=== PATIENT | female | born 1930 | race African-American/Black ===

== ENCOUNTER 2016-09-22 12:32 | Inpatient (IN) | payer MEDICARE, OTHER ==
--- NOTE | ~2016-09-22 | CN ---
Consultation Report [facility] [address] [place]. [address] NAME: KUSHAL RIVER : 29 STATUS : ADM IN PAT#: [id number] AGE: 86 ADM/REG DATE : 09/22/16 MR#: [id number] REPORT SERV DATE: 09/25/16 DICTATED BY: SONNY CONTRERAS DATE: 09/25/16 REPORT STATUS : Draft TRANSCRIBED BY: MODL DATE: 09/25/16 CONSULTATION DATE OF CONSULTATION: 09/25/2016 PERTINENT HISTORY: The patient is an 86-year-old female admitted to the hospital with Dr. Nilo Grewal with known history of dialysis dependent end-stage renal disease, who was also been evaluated from a cardiology standpoint by Dr. Sid Cui. The patient was taken to the cardiac catheterization lab and noted to have severe three-vessel coronary artery disease. She also had a history of atrial fibrillation and possible history of some mild aortic valvular heart disease. The patient was then referred for evaluation of potential cardiac surgical intervention for the coronary artery disease. PAST MEDICAL HISTORY: Her past medical history is significant for arthritis, hypertension, diabetes mellitus, end-stage renal disease, diverticulitis, and sinusitis. PAST SURGICAL HISTORY: Her past surgical history is significant for partial hysterectomy years ago, a dialysis access fistula in the left upper extremity, colonoscopy, tonsillectomy. She had no open cardiac or thoracic surgery. SOCIAL HISTORY: No ethanol use. No tobacco use. 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 FAMILY HISTORY: End-stage renal disease. REVIEW OF SYSTEMS: Significant for blurred vision of both eyes, slight hearing loss. She had no real history of regular angina. Nonproductive cough but no obvious shortness of breath. PHYSICAL EXAMINATION: VITAL SIGNS: The physical examination showed the patient to be afebrile. Blood pressure 150/90, heart rate was at 70, could be irregular. GENERAL: She is in no acute distress. Alert and oriented x3. NEUROLOGICAL: Intact. NECK: No adenopathy in her neck. CHEST: Her chest had breath sounds bilaterally without obvious wheeze or rales. HEART: She had irregular rhythm, a prominent PMI. ABDOMEN: Her abdomen is soft and nontender without masses. EXTREMITIES: Warm and dry. IV access in the left upper extremity. SKIN: Showed no obvious rash. DATA: Cardiac catheterization demonstrated very diffuse disease proximally involving the LAD artery, circumflex, and right coronary arteries. The right coronary artery is totally occluded. She did have reasonable operative targets in the LAD artery circumflex system as Consultation Report [place] [id number] [facility] [place]. [address] NAME: KUSHAL RIVER : 29 STATUS : ADM IN PAT#: [id number] AGE: 86 ADM/REG DATE : 09/22/16 MR#: [id number] REPORT SERV DATE: 09/25/16 DICTATED BY: SONNY CONTRERAS DATE: 09/25/16 REPORT STATUS : Draft TRANSCRIBED BY: MODWilly DATE: 09/25/16 well as distal right coronary artery. Her echocardiogram demonstrated moderate aortic insufficiency, mild aortic stenosis with valve pressure at 1.4. Ejection fraction of approximately 45% with mild mitral regurgitation. Calculated STS mortality was 35%, morbidity was 68%. Long discussion with the patient regarding surgical intervention. She understood the risks and benefits. She does not want to undergo any kind of surgical intervention as she appears like her risk would be too high. Therefore we recommend continued further medical management. PARESH/FILI Sonny Contreras M.D. / [id number] CC: Leigha Mendiola
--- NOTE | ~2016-09-22 | CN ---
Consultation Report [facility] [address] [place]. [address] NAME: KUSHAL RIVER : 29 STATUS : ADM IN [facility]#: [id number] AGE: 86 ADM/REG DATE : 09/22/16 MR#: [id number] REPORT SERV DATE: 09/24/16 DICTATED BY: CARMENCITA REY III DATE: 09/24/16 REPORT STATUS : Draft TRANSCRIBED BY: FILI DATE: 09/24/16 CONSULTATION DATE OF CONSULTATION: 09/24/2016 HISTORY OF PRESENT ILLNESS: Mrs. Kushal River is an 86-year-old female, admitted to [facility] for evaluation of an acute kjr-DN-igunxre elevation myocardial infarction, new onset atrial fibrillation with a rapid ventricular response, and nonsustained ventricular tachycardia. The patient has a history of intermittent dull substernal chest pain. The patient did well until the day of admission. At that time, the patient noted the onset of generalized weakness and nausea during dialysis. A 12-lead electrocardiogram demonstrated atrial fibrillation with a rapid ventricular response. The patient was subsequently seen in the [facility] Emergency Room. The patient's troponin I level was 0.13, hemoglobin 10.3, hematocrit 30.6, platelet count was 113,000, BUN 30, and creatinine was 6.02. A 12-lead electrocardiogram demonstrated atrial fibrillation with an average ventricular response of 170 beats per minute and left ventricular hypertrophy with repolarization abnormalities. The patient was subsequently treated with intravenous diltiazem. The patient was admitted and referred for cardiovascular evaluation. The patient complained of recent bilateral pedal edema and two-pillow orthopnea. The patient denied palpitations, syncope, dyspnea on exertion, paroxysmal nocturnal dyspnea, trepopnea, platypnea, hip claudication, and lower extremity claudication. The patient has no history of rheumatic fever or cardiac murmur. The patient's documented coronary artery disease risk factors include hypertension and diabetes mellitus. PAST MEDICAL HISTORY: 1. Hypertension. 2. Diabetes mellitus. 3. End-stage renal disease. 4. Arthritis. 5. History of diverticulitis. 6. Chronic sinusitis. OPERATIVE PROCEDURES: 1. Status post left upper extremity fistula. 2. Status post colostomy. 3. Status post tonsillectomy. 4. Status post partial hysterectomy. ALLERGIES: PENICILLIN. HOME MEDICATIONS: 1. B-complex with vitamin C and folic acid 1 p.o. daily. 2. Carvedilol 3.125 mg p.o. b.i.d. (noncompliant). Consultation Report [place] [address] [place]. [address] NAME: KUSHAL RIVER : 29 STATUS : ADM IN PAT#: [id number] AGE: 86 ADM/REG DATE : 09/22/16 MR#: [id number] REPORT SERV DATE: 09/24/16 DICTATED BY: CARMENCITA REY III DATE: 09/24/16 REPORT STATUS : Draft TRANSCRIBED BY: FILI DATE: 09/24/16 3. Gabapentin 100 mg p.o. b.i.d. 4. Alpha methyldopa 250 mg p.o. b.i.d. 5. Nifedipine ER 60 mg p.o. daily. 6. Polyethylene glycol 1 drop OU b.i.d., p.r.n. 7. Sevelamer 800 mg p.o. t.i.d. with meals (noncompliant). FAMILY HISTORY: Positive for hypertension, cancer, kidney disease, pernicious anemia, arthritis, and obsessive-compulsive disorder. Negative for myocardial infarction, stroke, seizures, and liver disease. SOCIAL HISTORY: The patient discontinued alcohol use, approximately fifty years, prior to this admission. The patient denied any history of tobacco use. PHYSICAL EXAMINATION: GENERAL: Physical examination demonstrated a thin, alert, elderly female, in no acute distress. VITAL SIGNS: Demonstrated that she was afebrile to touch, respiratory rate was 17 breaths per minute, and blood pressure was 134/67 mmHg with a heart rate of 70 beats per minute. SKIN: Warm and dry. There was a left upper extremity colostomy, intact. There is a well- healed midline abdominal surgical scar. There was a left arm fistula. NECK: Supple and nontender. There was decreased range of motion. There was no appreciable lymphadenopathy or thyromegaly. There was no jugular venous distention at 90 degrees. There were no carotid bruits. BACK: Examination of the back demonstrated diffuse spinal and bilateral costovertebral angle tenderness. CHEST: Examination of the chest demonstrated right greater than left basilar inspiratory crackles. There were no rhonchi, wheezes, or pleural rubs. There was symmetrical expansion of the chest. CARDIAC: Cardiac examination demonstrated a nonpalpable apical impulse. There was a regular rhythm and rate with a grade II-III/ systolic crescendo-decrescendo murmur heard best at the left sternal border and apex. There was no significant radiation of the systolic murmur. There was no diastolic murmur, rub, gallop, or mid systolic click. There were no thrills or heaves. There was no hepatojugular reflux. ABDOMEN: Examination of the abdomen demonstrated that it was soft and nontender. There was no hepatosplenomegaly or masses. Bowel sounds were intact. There were no abdominal or femoral bruits. BACK: Examination of the extremities demonstrated that they were symmetrical. There was decreased range of motion. There was 1 to 2+ pitting bilateral pedal edema. There was no cyanosis or clubbing. Pulses were 2+ and equal at the femoral arteries. The right radial pulse was 2+ and the left radial pulse was 1+. The right dorsalis pedis pulse was 2+ and the left dorsalis pedis pulse was 1+. The posterior tibial pulses were trace to nonpalpable. LABORATORY DATA: Serum laboratory studies demonstrated troponin I levels of 0.13, 14, and 13.5. The B-type natriuretic peptide level was 1086.7 pg/mL. The TSH level was 4.13. The Consultation Report [address] [address] NAME: KUSHAL RIVER : 29 STATUS : ADM IN [facility]#: [id number] AGE: 86 ADM/REG DATE : 09/22/16 MR#: [id number] REPORT SERV DATE: 09/24/16 DICTATED BY: CARMENCITA REY III DATE: 09/24/16 REPORT STATUS : Draft TRANSCRIBED BY: MODWilly DATE: 09/24/16 sodium was 144, potassium 3.8, chloride 106, BUN 34, and creatinine was 5.76. ASSESSMENT: Ms. Kushal River is an 86-year-old female with two other risk factors for coronary atherosclerotic disease (i.e. hypertension, diabetes mellitus), new onset atrial fibrillation with a rapid ventricular response, and nonsustained ventricular tachycardia. I would recommend the initiation of therapy with aspirin, intravenous heparin, beta-adrenergic antagonist, nitrates, and high-intensity atorvastatin. I would recommend a 2D and Doppler echocardiogram to delineate the source of the patient's systolic murmur. I have recommended cardiac catheterization and consideration of revascularization. Options, potential risks, and benefits of the procedure were discussed with the patient. The patient wished to consider her options. HARINI/FILI Carmencita Rey III, M.D., [facility], [facility] / [id number] CC: Nilo Grewal M.D. Tricia Deal
--- NOTE | ~2016-09-22 | OP ---
Record Of Operation [facility] [address] [place]. [address] NAME: KUSHAL RIVER : 29 STATUS : ADM IN PAT#: [id number] AGE: 86 ADM/REG DATE : 09/22/16 MR#: [id number] REPORT SERV DATE: 09/29/16 DICTATED BY: STEPHEN GANNON DATE: 09/29/16 REPORT STATUS : Draft TRANSCRIBED BY: MODL DATE: 09/29/16 DATE OF PROCEDURE: 09/28/2016 PREOPERATIVE DIAGNOSES: 1. Prolonged bleeding, left upper extremity AV fistula. 2. AV fistula aneurysm. POSTOPERATIVE DIAGNOSES: 1. Prolonged bleeding, left upper extremity AV fistula. 2. AV fistula aneurysm. PROCEDURES: 1. Left upper extremity fistulogram. 2. Percutaneous angioplasty of the AV fistula using a 10 mm balloon. SURGEON: Stephen Gannon M.D. NICKER AND BREAKER: None. ANESTHESIA: MAC plus local. INDICATIONS: The patient is an 86-year-old lady who presented with myocardial infarction and has sudden renal failure. She also has known AV fistula aneurysms. She does have some issues with prolonged bleeding and previously had stenosis of her AV fistula that has been treated. Now, she has consented for a fistulogram with possible intervention as there is likely an underlying stenosis. DESCRIPTION OF PROCEDURE: After informed consent was obtained, the patient was taken to the operating room and placed in the supine position on the operating table. Monitored anesthesia was administered. The patient's left upper extremity was prepped and draped in the usual sterile fashion. Ultrasound-guided access was obtained of the AV fistula in an antegrade fashion. I obtained a fistulogram. This demonstrated several areas of irregularity, in particular there was a question of a more significant stenosis right at the confluence of the cephalic vein with the deep venous system. I placed a 6-Kazakh sheath and angioplastied it close to the fistula including the cephalic arch with a 10 mm balloon. There was a little bit of a waist at the confluence as well as at another point within the fistula. Imaging obtained afterwards showed a great result. Thus, I withdrew my wire, catheter, sheath, and placed a stitch for hemostasis. The patient tolerated the procedure well without any intraprocedural complications noted. GEOPHYSICIST/FILI Stephen Gannon M.D. Record Of Operation [place] [address] [place]. [address] NAME: KUSHAL RIVER : 29 STATUS : ADM IN PAT#: [id number] AGE: 86 ADM/REG DATE : 09/22/16 MR#: [id number] REPORT SERV DATE: 09/29/16 DICTATED BY: STEPHEN GANNON DATE: 09/29/16 REPORT STATUS : Draft TRANSCRIBED BY: MODL DATE: 09/29/16 / [id number] CC: Leigha Mendiola
--- NOTE | ~2016-09-22 | HP ---
History And Physical [place] [id number] [place]. [address] NAME: KUSHAL RIVER : 29 STATUS : ADM IN [facility]#: [id number] AGE: 86 ADM/REG DATE : 09/22/16 MR#: [id number] REPORT SERV DATE: 09/22/16 DICTATED BY: DATE: REPORT STATUS : Draft TRANSCRIBED BY: MODL DATE: 09/22/16 DATE OF ADMISSION: 09/22/2016 CHIEF COMPLAINT: Weakness. HISTORY OF PRESENT ILLNESS: Ms. River is an 86-year-old black female with a history of end stage renal disease, dialyzes at [facility] in [place] on Wednesday, Wednesday, and Wednesday; hypertension; osteoarthritis; perforation of diverticulitis with colostomy; hyperlipidemia; partial hysterectomy, who presents to the hospital with weakness that started yesterday after dialysis. Before going to dialysis, she was in her usual state of health and felt well. She lives at home alone and states during the treatment, she developed a slight sore throat, thought she may be getting a cold and then when she got home, she was so weak that she could not even walk around her house. This morning, awoke and she was still quite weak to the point where her niece had to help her get clothes on. Therefore, they presented to the emergency department. She was found to be in atrial fibrillation with RVR with rate up to the 170s and short of breath. She states she did have a temperature of 100 earlier and took some Tylenol with relief of symptoms, and she is currently without any sore throat. No chest pain or shortness of breath while sitting here at this time. Her chest x-ray showed some left pleural fluid. It is of note that the patient did have some increased lower extremity edema in the last couple of weeks. She states she had never had problems with edema in the past, this was new for her. 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 ALLERGIES: PENICILLIN. SOCIAL HISTORY: She lives by herself, but has nieces who help with her care. No tobacco, alcohol, or illicit drug use. FAMILY MEDICAL HISTORY: Strongly positive for end-stage renal disease. MEDICATIONS: At home, Tylenol, B complex vitamin, Coreg, Neurontin, methyldopa, nifedipine, eye drops, and Renvela. REVIEW OF SYSTEMS: Twelve-point review of systems obtained and negative with the exception of that in the HPI. PHYSICAL EXAMINATION: VITAL SIGNS: Temperature 98.7, blood pressure 120s over 70s, heart rates in the 90s to one- teens. GENERAL: This is a pleasant, cooperative black female. She is awake, alert and oriented x3, in no acute distress. Answers questions appropriately. HEENT: Normocephalic and atraumatic. Conjunctivae clear. Sclerae anicteric. Pupils are equal and round. Oral mucosa is moist. HEART: Rate is irregularly irregular. History And Physical [address] [address] NAME: KUSHAL RIVER : 29 STATUS : ADM IN [facility]#: [id number] AGE: 86 ADM/REG DATE : 09/22/16 MR#: [id number] REPORT SERV DATE: 09/22/16 DICTATED BY: DATE: REPORT STATUS : Draft TRANSCRIBED BY: MODWilly DATE: 09/22/16 LUNGS: Bilateral breath sounds clear to auscultation. Respirations even and unlabored. ABDOMEN: Soft and nontender with colostomy in the left abdomen. No CVA tenderness. BACK: Within normal limits. EXTREMITIES: She has trace to 1+ pitting edema, left greater than right, to lower extremities. NEUROLOGIC: No focal deficits. Mood and affect, very pleasant and appropriate. PERTINENT LABORATORIES AND X-RAYS: She has a chest x-ray with description as above with some pleural fluid to the left. Sodium 141, potassium 4.1, chloride 103, CO2 of 27, BUN of 30, creatinine of 6, magnesium 2.1. Troponin 0.13. WBCs 9, H and H 10 and 30, platelets 113,000. IMPRESSION: 1. Atrial fibrillation with rapid ventricular response. 2. End-stage renal disease, Wednesday, Wednesday, and Wednesday at [place]. 3. Hypertension. 4. Osteoarthritis. 5. Fever. 6. Status post colostomy. PLAN: She is going to be admitted and placed on Cardizem drip. I did discuss anticoagulation with the patient and she states that she is not interested. I did talk to her about increased risk for stroke and she still declines. We will plan on dialysis tomorrow per routine and try and pull some extra fluid. Further orders and recommendations pending clinical course. JJ/MODL DIVINE Bloom / [id number] CC: Tricia Deal
--- NOTE | ~2016-09-22 | OP ---
Record Of Operation [facility] [address] [place]. [address] NAME: KUSHAL BALLARD : 29 STATUS : DIS IN PAT#: [id number] AGE: 86 ADM/REG DATE : 09/22/16 MR#: [id number] REPORT SERV DATE: 10/05/16 DICTATED BY: CARMENCITA REY III DATE: 10/05/16 REPORT STATUS : Draft TRANSCRIBED BY: MODL DATE: 10/05/16 DATE OF PROCEDURE: 09/24/2016 PROCEDURAL DECORATING KILN OPERATOR: Dr. Carmencita Rey. INDICATION: Mrs. Kushal Ballard is an 86-year-old female with two other risk factors for coronary atherosclerotic disease (i.e. hypertension, diabetes mellitus), new onset atrial fibrillation with a rapid ventricular response, acute hbq-SO-pvulfjt elevation myocardial infarction-acute coronary syndrome and nonsustained ventricular tachycardia. A 2D and Doppler echocardiogram performed on 09/23/2016 demonstrated mild concentric left ventricular hypertrophy, mild global left ventricular hypokinesis, mild reduction in global left ventricular systolic function, severe left atrial enlargement, moderate right atrial enlargement, mild aortic stenosis with moderate regurgitation, posterior mitral annular calcification, eusw-ta-gotzzlrp mitral regurgitation, moderate tricuspid regurgitation, pulmonary regurgitation, left pleural effusion and findings suggestive of pulmonary hypertension. The patient was referred for right and left heart catheterization to define coronary anatomy, left ventricular function and right heart pressures. Options, potential risks, and benefits of the procedure were discussed with the patient. The patient accepted these risks and wished to proceed. PROCEDURE DESCRIPTION: 1. Limited right iliofemoral angiogram. 2. Right heart catheterization. 3. Left heart catheterization. 4. Left ventriculogram. 5. Left and right coronary angiograms. CONTRAST: Iopamidol 115 mL. MEDICATIONS: 1. Midazolam 0.5 mg intravenously. 2. Sublimaze 25 mcg intravenously. EQUIPMENT: 1. 4-Italian Cook micropuncture with stiffened cannula (RFA). 2. 0.035-inch PTFE coated, 150 cm, 3 mm J Cordis [place] guidewire. 3. 7-Italian, 11 cm Cordis Brie MS sheath. 4. 6-Italian, 100 cm #4 curve right coronary artery David catheter. 5. 0.035-inch stainless steel, 35 cm, 3 mm J guidewire. 6. 7-Italian, 11 cm Cordis Brie MS sheath (RFV). 7. 7-Italian, 110 cm [place] thermodilution catheter. 8. 0.035-inch PTFE coated, 150 cm, straight Cordis [place] guidewire. 9. 0.035-inch PTFE coated, 260 cm, 3 mm J exchange Cordis [place] guidewire. 10.7-Italian [place] dual lumen [employer] catheter (34 mL at 13 mL per second). 11.6-Italian, 100 cm #4 curve left coronary artery David catheter. 12.6-Italian, 100 cm #5 curve left coronary artery David catheter. Record Of Operation [place] [id number] [facility] [place]. [address] NAME: KUSHAL BALLARD : 29 STATUS : DIS IN PAT#: [id number] AGE: 86 ADM/REG DATE : 09/22/16 MR#: [id number] REPORT SERV DATE: 10/05/16 DICTATED BY: CARMENCITA REY III DATE: 10/05/16 REPORT STATUS : Draft TRANSCRIBED BY: FILI DATE: 10/05/16 13.6-Italian Pelaez Perclose ProGlide vascular closure device. COMPLICATIONS: None. RADIATION DOSE: 299 mGy. ESTIMATED BLOOD LOSS: 40 mL. HEMODYNAMIC DATA: Prior to the injection of contrast, the central aortic pressure was 100/45 mmHg with a mean of 65 mmHg. The left ventricular pressure was 103/12 mmHg. The mean pulmonary capillary wedge pressure was 12 mmHg. The pulmonary artery pressure was 42/12 mmHg with a mean of 22 mmHg. The right ventricular pressure was 42/7 mmHg. The mean right atrial pressure was 7 mmHg. The cardiac output and cardiac index as determined by using the thermal dilution technique were 3.9 L/minute and 2.7 L/minute/sq m, respectively. The pulmonary vascular resistance and pulmonary vascular resistance index were 205 dynes- seconds over centimeters to the fifth power and 293, respectively. The systemic vascular resistance and systemic vascular resistance index were 1188 dynes-seconds over centimeters to the fifth power and 1699, respectively. ANGIOGRAPHIC DATA: Limited right iliofemoral angiography demonstrated marked tortuosity with sequential eccentric, radiolucent 25% stenosis of the distal portion of the external iliac artery. There was a radiolucent, eccentric 25% stenosis of the common femoral artery. The puncture site was located in the common femoral artery. Single plane 30 degree KAYE left ventriculography demonstrated that the left ventricle was normal in size. Regional and global left ventricular systolic functions were normal. There was trace mitral regurgitation, resulting from ventricular ectopic activity. The left main coronary artery was a large caliber, short, calcified vessel. There was an eccentric 50% stenosis involving the distal portion of the left main coronary artery. The left main coronary artery bifurcated into a medium to large caliber left anterior descending and a medium to large caliber, nondominant left circumflex coronary arteries. The left anterior descending coronary artery gave rise to two major septal perforators and one medium caliber diagonal branch, before wrapping around the left ventricular apex. The left anterior descending coronary artery was diffusely irregular. There was a long, irregular, eccentric, calcified 50% to 70% stenosis involving the proximal portion of the left anterior descending coronary artery, distal to the origin of the first major septal print press operator and at the origin of the major diagonal branch. There was a radiolucent, concentric 90% stenosis involving the proximal portion of the major diagonal branch of the left anterior descending coronary artery. The remainder of the left anterior descending coronary artery was free of angiographically significant obstructive epicardial coronary artery disease. Record Of Operation [address] [address] NAME: KUSHAL BALLARD : 29 STATUS : DIS IN PAT#: [id number] AGE: 86 ADM/REG DATE : 09/22/16 MR#: [id number] REPORT SERV DATE: 10/05/16 DICTATED BY: CARMENCITA REY III DATE: 10/05/16 REPORT STATUS : Draft TRANSCRIBED BY: FILI DATE: 10/05/16 The left circumflex coronary artery was a medium to large caliber, nondominant vessel. The left circumflex coronary artery gave rise to a medium caliber first obtuse marginal branch, medium to large caliber second obtuse marginal branch and one small caliber posterolateral segment branch. The left circumflex coronary artery was diffusely irregular. The left circumflex coronary artery was free of angiographically significant obstructive epicardial coronary artery disease. The right coronary artery was a nrpwp-ki-hwbzso caliber, dominant vessel. The right coronary artery gave rise to a sinoatrial branch, medium caliber conus branch and a medium caliber acute marginal branch, before being totally occluded in its distal portion. The right coronary artery was diffusely irregular and calcified in its proximal and mid portions. There were sequential eccentric 50% and radiolucent 90% stenosis involving the proximal to midportion of the right coronary artery, proximal to the origin of the acute marginal branch. The distal portion of the right coronary artery was visualized faintly and late by qegqt-dv-brkdh bridging and gimj-db-bhnbx collaterals from the left circumflex coronary artery. PATIENT DISPOSITION: Coronary Short Stay Unit. CONCLUSIONS: 1. Normal regional and global left ventricular systolic functions. 2. Normal left ventricular end-diastolic pressure. 3. Angiographically significant left main and two-vessel coronary artery disease, involving the mid portion of the left anterior descending and proximal to midportion of the right coronary arteries. 4. Right dominant coronary anatomy. 5. Elevated pulmonary vascular resistance. RECOMMENDATIONS: Intensive risk factor modification, intensive medical therapy, and consider coronary artery bypass graft surgery. LH/MODL Carmencita Rey III, M.D., [facility], [facility] [place] / [id number] CC: Leigha Mendiola FRANCES Joseph [place], M.D.
--- NOTE | ~2016-09-22 | DS ---
Discharge Summary [facility] [address] [place]. [address] NAME: KUSHAL RIVER : 29 STATUS : DIS IN PAT#: [id number] AGE: 86 ADM/REG DATE : 09/22/16 MR#: [id number] REPORT SERV DATE: 10/09/16 DICTATED BY: VIANEY CAPPS DATE: 10/08/16 REPORT STATUS : Draft TRANSCRIBED BY: FILI DATE: 10/08/16 Data Collection from hospitalization DISCHARGE DIAGNOSES: 1. End-stage renal disease. 2. Atherosclerotic cardiovascular disease. 3. Non-ST elevation myocardial infarction - acute. 4. Hypertension. 5. Nonsustained ventricular tachycardia/atrial fibrillation. 6. Osteoarthritis. 7. Hyperlipidemia. CONSULTATIONS: 1. Sid Rey M.D., [facility], [facility]. 2. Sonny Contreras M.D. 3. Stephen Gannon M.D. PROCEDURES PERFORMED: 1. Limited right iliofemoral angiogram, right heart catheterization, left heart catheterization, left ventriculogram, left and right coronary angiogram on 09/24/2016. 2. Left upper extremity fistulogram and percutaneous angioplasty of the AV fistula using a 10 mm balloon on 09/28/2016. 3. Doppler evaluation of left upper extremity dialysis fistula on 09/23/2016. MEDICATIONS: Aspirin 81 mg daily, Lipitor 40 mg at bedtime, folic acid 1 mg daily, Neurontin 100 mg twice a day, Aldomet 250 mg twice a day, Megace oral suspension 400 mg daily as instructed, Lopressor 50 mg twice a day, Nitro-Dur 10 mg topically daily, Renvela 800 mg with meals, Renal Softgels one capsule daily, Tylenol 650 mg daily as needed, and Systane one drop twice a day as needed. CONDITION AT DISCHARGE: Stable. DISPOSITION: The patient was discharged to [facility] on a renal diet with activities as instructed. HOSPITAL COURSE: This is an 86-year-old female who has a history of end-stage renal disease and dialyzes on Mondays, Wednesdays, and Fridays. She has a history of hypertension, osteoarthritis, perforation of the diverticulitis with colostomy, hyperlipidemia and partial hysterectomy. She presented to the hospital with weakness that started on the day prior to this admission after dialysis. Before going to dialysis, she has been in her usual state of health and felt well. She lives at home alone and said during the treatment that she developed a slight sore throat and thought she may be getting a cold, and then when she got home, she was so weak that she could not even walk around her house. On the morning of this admission, she awoke and was still quite weak to the point where her niece had to help her get her clothes on. She presented to the emergency department and was found to be in atrial fibrillation with rapid ventricular response with a rate up into the 170s and shortness of breath. She said that she had a temperature of 100 earlier and took some Tylenol with relief of symptoms. She currently had no sore throat or chest pain or shortness of breath. Discharge Summary [address] [address] NAME: KUSHAL RIVER : 29 STATUS : DIS IN PAT#: [id number] AGE: 86 ADM/REG DATE : 09/22/16 MR#: [id number] REPORT SERV DATE: 10/09/16 DICTATED BY: VIANEY CAPPS DATE: 10/08/16 REPORT STATUS : Draft TRANSCRIBED BY: FILI DATE: 10/08/16 Chest x-ray showed some left pleural fluid. She did have some increased lower extremity edema over the past couple of weeks. She said she has never had problems with edema in the past. She was admitted to the hospital at this time for further evaluation and treatment. Upon admission, creatinine level was 6. The patient was in atrial fibrillation with rapid ventricular response. She was placed on a Cardizem drip. Anticoagulation was discussed with the patient and she said she was not interested. We spoke with her about the increased risk for stroke and she still declined. Dialysis therapy would be performed per her routine and we would try to pull some extra fluids. The following day, she was seen by Dr. Sid Rey. A 12-lead electrocardiogram had demonstrated atrial fibrillation with rapid ventricular response. The patient was found to have two other risk factors for coronary atherosclerotic disease (hypertension and diabetes mellitus) with new-onset atrial fibrillation with rapid ventricular response, acute non-ST segment elevation myocardial infarction, acute coronary syndrome and nonsustained ventricular tachycardia. A 2D and Doppler echocardiogram demonstrated mild concentric left ventricular hypertrophy, mild global left ventricular hypokinesis, mild reduction in global left ventricular systolic function, severe left atrial enlargement, moderate right atrial enlargement, mild aortic stenosis with moderate regurgitation, posterior mitral annular calcification, mild-to- moderate mitral regurgitation, moderate tricuspid regurgitation and pulmonary regurgitation, and left pleural effusion and findings suggestive of pulmonary hypertension. It was felt that the patient would need to undergo cardiac catheterization. Doppler evaluation of left upper extremity dialysis fistula was performed. There was a widely patent brachial artery to cephalic vein dialysis fistula with very large flow volume calculated to be 9785 mL/M. There appeared to be some steal phenomenon associated with a fistula with to and fro flow in the brachial artery distal to the fistula as well as monophasic flow in the radial and ulnar arteries on the left. Echocardiogram was performed. She had no chest pain or shortness of breath. On 09/24/2016, she was taken to the cardiac cath lab nurse by Dr. Sid Rey where she underwent the above-mentioned procedure. She tolerated this well, and there were no complications. On 09/25/2016, she was seen by Dr. Sonny Contreras. The cardiac catheterization had demonstrated very diffuse disease proximally involving the LAD artery, circumflex and right coronary artery. The right coronary artery was totally occluded. She did have reasonable operative targets in the LAD artery, circumflex system, as well as distal right coronary artery. Her echocardiogram demonstrated moderate aortic insufficiency, mild aortic stenosis with valve pressure at 1.4. Ejection fraction was approximately 45% with mild mitral regurgitation. Long discussion was held with the patient regarding surgical intervention. She understood the risks and benefits, and did not want to undergo any kind of surgical intervention as she felt like her risk would be too high. Continued further medical management was recommended. She was in a sinus rhythm with APCs on telemetry. She had no chest pain, palpitations, or dyspnea. She had new-onset atrial fibrillation - rate controlled. On 09/26/2016, she had no chest pain. She denied shortness of breath, but did report having a dry cough. She refused to undergo coronary artery bypass grafting. She was in a sinus rhythm. Brilinta was added to her regimen. She still had a dry cough. She was evaluated by Physical Therapy. Nitroglycerin ointment was changed to Nitro-Dur. The patient continued to decline chronic anticoagulation. We were going to taper and discontinue IV heparin. On 09/28/2016, she was seen by Dr. Stephen Gannon. The patient has known AV fistula Discharge Summary [facility] [address] [place]. [address] NAME: KUSHAL RIVER : 29 STATUS : DIS IN PAT#: [id number] AGE: 86 ADM/REG DATE : 09/22/16 MR#: [id number] REPORT SERV DATE: 10/09/16 DICTATED BY: VIANEY CAPPS DATE: 10/08/16 REPORT STATUS : Draft TRANSCRIBED BY: MODWilly DATE: 10/08/16 aneurysm. She does have some issues with prolonged brief bleeding and previously had stenosis of her AV fistula that had been treated. Now, she had consented for a fistulogram with possible intervention as there was likely an underlying stenosis. She was taken to the operating room by Dr. Gannon where she underwent the above-mentioned procedure. She tolerated this well, and there were no complications. The following day, discharge planning was performed. She had good pain control. She had no edema. Discharge planning was performed. On 09/30/2016, she was in no acute distress. Discharge instructions were given. Due to her improved and stable condition, she was discharged to [facility] with the above- stated instructions. Information collected by: Renea Lo I submit the above information as my discharge summary. SANJAY/FILI Vianey Capps M.D. / [id number] CC: Leigha Mendiola FRANCES Leonard Hays III, M.D., [facility], [facility] Sonny Contreras M.D.
[2016-09-22 13:02] LABS: BASOPHILS 0.1 %; BASOPHILS ABSOLUTE 0.01 10/3/uL (0.0-0.16); EOSINOPHILS 0 %; HEMATOCRIT 30.6 % (36.0-48.0); HEMOGLOBIN 10.3 g/dL (12.0-16.0); IMMATURE GRANULOCYTES 0.3 %; IMMATURE GRANULOCYTES ABSOLUTE 0.03 10/3/uL (0.0-0.11); LYMPHOCYTES 6.5 %; LYMPHOCYTES ABSOLUTE 0.58 10/3/uL (0.67-4.30); MEAN CORPUS HGB CONC 33.7 g/dL (32.0-36.0); MEAN CORPUSCULAR HEMOGLOB 33.1 pg (26.0-34.0); MEAN CORPUSCULAR VOLUME 98.4 fL (80-100); MONOCYTES 4.4 %; MONOCYTES ABSOLUTE 0.39 10/3/uL (0.21-1.20); NEUTROPHILS 88.7 %; NEUTROPHILS ABSOLUTE 7.95 10/3/uL (2.02-8.40); PLATELET COUNT 113 10/3/uL (150-400); RBC DISTRIBUTION WIDTH 14.3 % (12.0-16.0); RED CELL COUNT 3.11 10/6/uL (4.0-5.6)
[2016-09-22 13:03] LABS: MANUAL DIFF NO %
[2016-09-22 13:10] LABS: INTERNATIONAL NORMAL RATI 1.3 UNITS (-); PARTIAL THROMBO TIME 30.1 SEC (22.5-37.2); PROTIME (NOT ORD) 16.1 SEC (12.0-14.5)
[2016-09-22 13:17] LABS: BUN (BLOOD UREA NITROGEN) 30 MG/DL (6-23); CALCIUM, SERUM 8.7 MG/DL (8.5-10.4); CHLORIDE, SERUM 103 MMOL/L (96-112); CO2 (CARBON DIOXIDE) 27 MMOL/L (24-34); CREATININE 6.02 MG/DL (0.55-1.02); GFR AFRICAN AMERICAN 7 ML/MIN (>=60); GFR NON AFRICAN AMERICAN 6 ML/MIN (>=60); GLUCOSE, SERUM 153 MG/DL (60-99); POTASSIUM, SERUM 4.1 MMOL/L (3.5-5.3); SODIUM, SERUM 141 MMOL/L (135-148)
[2016-09-22 13:19] LABS: CHEST PAIN PROFILE TAT 0 Hrs 21 Mins; TROPONIN I 0.13 NG/ML (<0.05)
[2016-09-22] MEDS ORDERED: RENVELA800 MG PO (13:24)
[2016-09-22] MEDS ORDERED: COREG3 PO (13:25)
[2016-09-22] MEDS ORDERED: ALD250 PO (13:26)
[2016-09-22] MEDS ORDERED: RENAL SFTGLS1 MG PO (13:26)
[2016-09-22] MEDS ORDERED: NEUR100 PO (13:33)
[2016-09-22] MEDS ORDERED: NIFEDIAC CC60 MG PO (13:34)
[2016-09-22] MEDS ORDERED: T PO (13:41)
[2016-09-22] MEDS ORDERED: MIRALAX POWDER1 PKT PO (13:43)
[2016-09-22 21:23] LABS: ALBUMIN 3.1 G/DL (3.5-5.0); ALKALINE PHOSPHATASE 122 U/L (45-117); DIRECT BILIRUBIN 0.3 MG/DL (0.0-0.4); FREE T4 1.45 NG/DL (0.76-1.46); INDIRECT BILIRUBIN(NOT ORDER) 0.4 MG/DL (0.1-0.9); SGOT(AST) 186 U/L (5-40); SGPT(ALT) 155 U/L (5-65); TOTAL BILIRUBIN 0.7 MG/DL (0-1.2); TOTAL PROTEIN 6.4 G/DL (6.0-8.5)
[2016-09-22 22:08] LABS: CK-MB 11.9 NG/ML; CKMB INDEX (NOT ORD) 5.2
[2016-09-23 06:05] LABS: BASOPHILS 0.2 %; BASOPHILS ABSOLUTE 0.01 10/3/uL (0.0-0.16); EOSINOPHILS 0 %; HEMATOCRIT 29.9 % (36.0-48.0); HEMOGLOBIN 9.9 g/dL (12.0-16.0); LYMPHOCYTES 12.3 %; LYMPHOCYTES ABSOLUTE 0.76 10/3/uL (0.67-4.30); MANUAL DIFF NO %; MEAN CORPUS HGB CONC 33.1 g/dL (32.0-36.0); MEAN CORPUSCULAR HEMOGLOB 33.1 pg (26.0-34.0); MEAN PLATELET VOLUME 9.4 fL (9.2-13.0); MONOCYTES 12.2 %; MONOCYTES ABSOLUTE 0.75 10/3/uL (0.21-1.20); NEUTROPHILS 75.3 %; NEUTROPHILS ABSOLUTE 4.65 10/3/uL (2.02-8.40); PLATELET COUNT 117 10/3/uL (150-400); RBC DISTRIBUTION WIDTH 14.1 % (12.0-16.0); RED CELL COUNT 2.99 10/6/uL (4.0-5.6); WHITE BLOOD CELLS 6.2 10/3/uL (4.5-10.5)
[2016-09-23 06:25] LABS: ALBUMIN 2.8 G/DL (3.5-5.0); CALCIUM, SERUM 7.9 MG/DL (8.5-10.4); CHLORIDE, SERUM 103 MMOL/L (96-112); CK-MB 6.8 NG/ML; CO2 (CARBON DIOXIDE) 28 MMOL/L (24-34); PHOSPHORUS, SERUM 6.5 MG/DL (2.5-4.5); POTASSIUM, SERUM 4.4 MMOL/L (3.5-5.3); SODIUM, SERUM 143 MMOL/L (135-148)
[2016-09-23 06:28] LABS: BUN (BLOOD UREA NITROGEN) 43 MG/DL (6-23); CKMB INDEX (NOT ORD) 3.5; CPK 196 U/L (0-200); CREATININE 7.16 MG/DL (0.55-1.02); GFR AFRICAN AMERICAN 5 ML/MIN (>=60); GFR NON AFRICAN AMERICAN 5 ML/MIN (>=60); GLUCOSE, SERUM 99 MG/DL (60-99)
[2016-09-24 02:28] LABS: BASOPHILS 0.2 %; BASOPHILS ABSOLUTE 0.01 10/3/uL (0.0-0.16); EOSINOPHILS 0.2 %; EOSINOPHILS ABSOLUTE 0.01 10/3/uL (0.0-0.53); HEMOGLOBIN 9.4 g/dL (12.0-16.0); IMMATURE GRANULOCYTES 0.2 %; IMMATURE GRANULOCYTES ABSOLUTE 0.01 10/3/uL (0.0-0.11); LYMPHOCYTES 11.2 %; MEAN CORPUS HGB CONC 32.4 g/dL (32.0-36.0); MEAN CORPUSCULAR HEMOGLOB 32.3 pg (26.0-34.0); MEAN CORPUSCULAR VOLUME 99.7 fL (80-100); MONOCYTES ABSOLUTE 0.94 10/3/uL (0.21-1.20); NEUTROPHILS 73.2 %; NEUTROPHILS ABSOLUTE 4.58 10/3/uL (2.02-8.40); PLATELET COUNT 100 10/3/uL (150-400); RBC DISTRIBUTION WIDTH 14.2 % (12.0-16.0); RED CELL COUNT 2.91 10/6/uL (4.0-5.6); WHITE BLOOD CELLS 6.3 10/3/uL (4.5-10.5)
[2016-09-24 02:30] LABS: MANUAL DIFF NO %
[2016-09-24 02:39] LABS: ALBUMIN 2.6 G/DL (3.5-5.0); CALCIUM, SERUM 7.9 MG/DL (8.5-10.4); CHLORIDE, SERUM 106 MMOL/L (96-112); CO2 (CARBON DIOXIDE) 31 MMOL/L (24-34); GLUCOSE, SERUM 115 MG/DL (60-99); POTASSIUM, SERUM 3.8 MMOL/L (3.5-5.3); SODIUM, SERUM 144 MMOL/L (135-148)
[2016-09-24 02:42] LABS: BUN (BLOOD UREA NITROGEN) 34 MG/DL (6-23)
[2016-09-24 02:43] LABS: CREATININE 5.76 MG/DL (0.55-1.02); GFR AFRICAN AMERICAN 7 ML/MIN (>=60); GFR NON AFRICAN AMERICAN 6 ML/MIN (>=60); PHOSPHORUS, SERUM 5.2 MG/DL (2.5-4.5)
[2016-09-24 10:14] LABS: INTERNATIONAL NORMAL RATI 1.2 UNITS (-); PROTIME (NOT ORD) 15.3 SEC (12.0-14.5)
[2016-09-24 10:19] LABS: BUN (BLOOD UREA NITROGEN) 35 MG/DL (6-23); CHLORIDE, SERUM 105 MMOL/L (96-112); CHOL/HDL RATIO(NOT ORDER) 1.8 (0-5); CHOLESTEROL 122 MG/DL (< 200); CO2 (CARBON DIOXIDE) 27 MMOL/L (24-34); CREATININE 6.18 MG/DL (0.55-1.02); GFR AFRICAN AMERICAN 6 ML/MIN (>=60); GFR NON AFRICAN AMERICAN 6 ML/MIN (>=60); HDL CHOLESTEROL 66 MG/DL (> 49); LDL CHOLESTEROL 38 MG/DL (< 130); NON-HDL CHOLESTEROL 56 MG/DL (< 160); POTASSIUM, SERUM 3.9 MMOL/L (3.5-5.3); SODIUM, SERUM 141 MMOL/L (135-148); TRIGLYCERIDE 94 MG/DL (< 150)
[2016-09-24 10:21] LABS: GLUCOSE, SERUM 147 MG/DL (60-99)
[2016-09-25 08:24] LABS: BASOPHILS 0.2 %; BASOPHILS ABSOLUTE 0.01 10/3/uL (0.0-0.16); EOSINOPHILS 0.5 %; EOSINOPHILS ABSOLUTE 0.03 10/3/uL (0.0-0.53); HEMATOCRIT 28.3 % (36.0-48.0); HEMOGLOBIN 9.6 g/dL (12.0-16.0); IMMATURE GRANULOCYTES 0.3 %; IMMATURE GRANULOCYTES ABSOLUTE 0.02 10/3/uL (0.0-0.11); LYMPHOCYTES 10.5 %; LYMPHOCYTES ABSOLUTE 0.69 10/3/uL (0.67-4.30); MANUAL DIFF NO %; MEAN CORPUS HGB CONC 33.9 g/dL (32.0-36.0); MEAN CORPUSCULAR HEMOGLOB 32.7 pg (26.0-34.0); MEAN CORPUSCULAR VOLUME 96.3 fL (80-100); MEAN PLATELET VOLUME 9.3 fL (9.2-13.0); MONOCYTES 9.4 %; MONOCYTES ABSOLUTE 0.62 10/3/uL (0.21-1.20); NEUTROPHILS 79.1 %; NEUTROPHILS ABSOLUTE 5.22 10/3/uL (2.02-8.40); PLATELET COUNT 117 10/3/uL (150-400); RBC DISTRIBUTION WIDTH 14.2 % (12.0-16.0); RED CELL COUNT 2.94 10/6/uL (4.0-5.6); WHITE BLOOD CELLS 6.6 10/3/uL (4.5-10.5)
[2016-09-25 09:34] LABS: BUN (BLOOD UREA NITROGEN) 22 MG/DL (6-23); CALCIUM, SERUM 8.2 MG/DL (8.5-10.4); CHLORIDE, SERUM 105 MMOL/L (96-112); CO2 (CARBON DIOXIDE) 27 MMOL/L (24-34); CREATININE 3.61 MG/DL (0.55-1.02); GFR AFRICAN AMERICAN 12 ML/MIN (>=60); GFR NON AFRICAN AMERICAN 11 ML/MIN (>=60); GLUCOSE, SERUM 141 MG/DL (60-99); POTASSIUM, SERUM 3.2 MMOL/L (3.5-5.3); SODIUM, SERUM 144 MMOL/L (135-148)
[2016-09-26 06:27] LABS: BASOPHILS 0.2 %; BASOPHILS ABSOLUTE 0.01 10/3/uL (0.0-0.16); EOSINOPHILS 1.9 %; EOSINOPHILS ABSOLUTE 0.11 10/3/uL (0.0-0.53); HEMATOCRIT 30.4 % (36.0-48.0); IMMATURE GRANULOCYTES 0.2 %; IMMATURE GRANULOCYTES ABSOLUTE 0.01 10/3/uL (0.0-0.11); LYMPHOCYTES ABSOLUTE 0.64 10/3/uL (0.67-4.30); MEAN CORPUS HGB CONC 32.9 g/dL (32.0-36.0); MEAN CORPUSCULAR HEMOGLOB 32.2 pg (26.0-34.0); MEAN CORPUSCULAR VOLUME 97.7 fL (80-100); MEAN PLATELET VOLUME 9.5 fL (9.2-13.0); MONOCYTES 13.3 %; MONOCYTES ABSOLUTE 0.77 10/3/uL (0.21-1.20); NEUTROPHILS 73.4 %; NEUTROPHILS ABSOLUTE 4.27 10/3/uL (2.02-8.40); PLATELET COUNT 112 10/3/uL (150-400); RBC DISTRIBUTION WIDTH 14.5 % (12.0-16.0); RED CELL COUNT 3.11 10/6/uL (4.0-5.6); WHITE BLOOD CELLS 5.8 10/3/uL (4.5-10.5)
[2016-09-26 06:33] LABS: MANUAL DIFF NO %
[2016-09-26 06:35] LABS: ALBUMIN 2.5 G/DL (3.5-5.0); CHLORIDE, SERUM 104 MMOL/L (96-112); CO2 (CARBON DIOXIDE) 26 MMOL/L (24-34); GFR AFRICAN AMERICAN 7 ML/MIN (>=60); GFR NON AFRICAN AMERICAN 6 ML/MIN (>=60); GLUCOSE, SERUM 160 MG/DL (60-99); PHOSPHORUS, SERUM 5.2 MG/DL (2.5-4.5); SODIUM, SERUM 141 MMOL/L (135-148)
[2016-09-26 06:37] LABS: BUN (BLOOD UREA NITROGEN) 33 MG/DL (6-23); CREATININE 5.75 MG/DL (0.55-1.02); POTASSIUM, SERUM 4.2 MMOL/L (3.5-5.3)
[2016-09-28 07:48] LABS: BASOPHILS 0.2 %; BASOPHILS ABSOLUTE 0.02 10/3/uL (0.0-0.16); EOSINOPHILS 0.4 %; EOSINOPHILS ABSOLUTE 0.04 10/3/uL (0.0-0.53); IMMATURE GRANULOCYTES 0.9 %; IMMATURE GRANULOCYTES ABSOLUTE 0.08 10/3/uL (0.0-0.11); LYMPHOCYTES 13.1 %; MEAN CORPUS HGB CONC 33.8 g/dL (32.0-36.0); MEAN CORPUSCULAR HEMOGLOB 32.1 pg (26.0-34.0); MEAN PLATELET VOLUME 9.3 fL (9.2-13.0); MONOCYTES 7.9 %; MONOCYTES ABSOLUTE 0.72 10/3/uL (0.21-1.20); NEUTROPHILS 77.5 %; NEUTROPHILS ABSOLUTE 7.11 10/3/uL (2.02-8.40)
[2016-09-28 07:49] LABS: HEMATOCRIT 26.6 % (36.0-48.0); MANUAL DIFF NO %; PLATELET COUNT 146 10/3/uL (150-400); WHITE BLOOD CELLS 9.2 10/3/uL (4.5-10.5)
[2016-09-28 08:02] LABS: ALBUMIN 2.3 G/DL (3.5-5.0); BUN (BLOOD UREA NITROGEN) 73 MG/DL (6-23); CHLORIDE, SERUM 103 MMOL/L (96-112); CO2 (CARBON DIOXIDE) 25 MMOL/L (24-34); CREATININE 8.72 MG/DL (0.55-1.02); GFR AFRICAN AMERICAN 4 ML/MIN (>=60); GFR NON AFRICAN AMERICAN 4 ML/MIN (>=60); GLUCOSE, SERUM 112 MG/DL (60-99); PHOSPHORUS, SERUM 5.1 MG/DL (2.5-4.5); POTASSIUM, SERUM 4.8 MMOL/L (3.5-5.3); SODIUM, SERUM 140 MMOL/L (135-148)
[2016-09-30 08:21] LABS: BASOPHILS 0.1 %; BASOPHILS ABSOLUTE 0.01 10/3/uL (0.0-0.16); EOSINOPHILS 0.6 %; EOSINOPHILS ABSOLUTE 0.05 10/3/uL (0.0-0.53); HEMATOCRIT 24.4 % (36.0-48.0); HEMOGLOBIN 8.2 g/dL (12.0-16.0); IMMATURE GRANULOCYTES 0.9 %; IMMATURE GRANULOCYTES ABSOLUTE 0.07 10/3/uL (0.0-0.11); LYMPHOCYTES 14.5 %; LYMPHOCYTES ABSOLUTE 1.19 10/3/uL (0.67-4.30); MEAN CORPUS HGB CONC 33.6 g/dL (32.0-36.0); MEAN CORPUSCULAR HEMOGLOB 31.8 pg (26.0-34.0); MEAN CORPUSCULAR VOLUME 94.6 fL (80-100); MEAN PLATELET VOLUME 9.2 fL (9.2-13.0); MONOCYTES 9.4 %; MONOCYTES ABSOLUTE 0.77 10/3/uL (0.21-1.20); NEUTROPHILS 74.5 %; NEUTROPHILS ABSOLUTE 6.09 10/3/uL (2.02-8.40); RBC DISTRIBUTION WIDTH 14.2 % (12.0-16.0); RED CELL COUNT 2.58 10/6/uL (4.0-5.6); WHITE BLOOD CELLS 8.2 10/3/uL (4.5-10.5)
[2016-09-30 08:28] LABS: ALBUMIN 2.4 G/DL (3.5-5.0); CALCIUM, SERUM 8.4 MG/DL (8.5-10.4); CHLORIDE, SERUM 101 MMOL/L (96-112); CO2 (CARBON DIOXIDE) 24 MMOL/L (24-34); PHOSPHORUS, SERUM 4.5 MG/DL (2.5-4.5); PLATELET COUNT 196 10/3/uL (150-400); POTASSIUM, SERUM 4.9 MMOL/L (3.5-5.3); SODIUM, SERUM 139 MMOL/L (135-148)
[2016-09-30 08:29] LABS: BUN (BLOOD UREA NITROGEN) 51 MG/DL (6-23); CREATININE 7.76 MG/DL (0.55-1.02); GFR AFRICAN AMERICAN 5 ML/MIN (>=60); GFR NON AFRICAN AMERICAN 4 ML/MIN (>=60); GLUCOSE, SERUM 183 MG/DL (60-99); MANUAL DIFF NO %
== END 2016-09-30 20:29 | DRG 252 ==
LOC: ER 12:32 → 2SO 18:17
PROVIDERS: Emergency Medicine; Internal Medicine Cardiovascular Disease; Internal Medicine Nephrology; Nurse Practitioner; Obstetrics & Gynecology; Registered Nurse
PROC: B51W1ZZ Fluoroscopy of Dialysis Shunt/Fistula using Low Osmolar Contrast (ICD-10-PCS; principal; 2016-09-22)
PROC: 057D3ZZ Dilation of Right Cephalic Vein, Percutaneous Approach (ICD-10-PCS; 2016-09-22)
PROC: B2151ZZ Fluoroscopy of Left Heart using Low Osmolar Contrast (ICD-10-PCS; 2016-09-22)
PROC: B2111ZZ Fluoroscopy of Multiple Coronary Arteries using Low Osmolar Contrast (ICD-10-PCS; 2016-09-22)
PROC: 4A023N8 Measurement of Cardiac Sampling and Pressure, Bilateral, Percutaneous Approach (ICD-10-PCS; 2016-09-22)
PROC: 5A1D60Z (ICD-10-PCS; 2016-09-23)
PROC: 057F3DZ Dilation of Left Cephalic Vein with Intraluminal Device, Percutaneous Approach (ICD-10-PCS; 2016-09-28)
PROC: B51W1ZZ Fluoroscopy of Dialysis Shunt/Fistula using Low Osmolar Contrast (ICD-10-PCS; 2016-09-28)
DX: I21.4 Non-ST elevation (NSTEMI) myocardial infarction (principal); N18.6 End stage renal disease; I47.2 Ventricular tachycardia; J18.9 Pneumonia, unspecified organism; I12.0 Hypertensive chronic kidney disease with stage 5 chronic kidney disease or end stage renal disease; I72.8 Aneurysm of other specified arteries; E11.22 Type 2 diabetes mellitus with diabetic chronic kidney disease; T82.858A Stenosis of other vascular prosthetic devices, implants and grafts, initial encounter; T82.838A Hemorrhage due to vascular prosthetic devices, implants and grafts, initial encounter; I48.0 Paroxysmal atrial fibrillation; I25.10 Atherosclerotic heart disease of native coronary artery without angina pectoris; M19.90 Unspecified osteoarthritis, unspecified site; Y82.8 Other medical devices associated with adverse incidents; I35.1 Nonrheumatic aortic (valve) insufficiency; I34.0 Nonrheumatic mitral (valve) insufficiency; F42.9 Obsessive-compulsive disorder, unspecified; J32.9 Chronic sinusitis, unspecified; H53.8 Other visual disturbances; H91.90 Unspecified hearing loss, unspecified ear; Z84.1 Family history of disorders of kidney and ureter; Z99.2 Dependence on renal dialysis; Z93.3 Colostomy status; Z98.890 Other specified postprocedural states; Z88.0 Allergy status to penicillin; Q27.31 Arteriovenous malformation of vessel of upper limb; Y92.009 Unspecified place in unspecified non-institutional (private) residence as the place of occurrence of the external cause
CPT/HCPCS: 36902; 71010; 80048; 80061; 80069; 80076; 82550; 82553; 82803; 82962; 83735; 83880; 84439; 84443; 84484; 85025; 85347; 85610; 85730; 87070; 87077; 87186; 87205; 93005; 93306; 93460; 93990; 96374; 97110-GP; 97161-GP; 97530-GP; 99291; A9270-GY; C1725; C1760; C1769; C1894; G0257; G8978-CK-GP; G8979-CJ-GP; J2250; J3010; P9047; Q9966; Q9967

== ENCOUNTER 2017-03-31 20:23 | Inpatient (IN) | payer MEDICARE, OTHER ==
[~2017-03-31] VITALS: Ht 157.5 cm; Wt 48.3 kg
--- NOTE | ~2017-03-31 | DS ---
Discharge Summary [facility] [address] [place]. [address] NAME: KUSHAL RIVER : 29 STATUS : ADM IN PAT#: [id number] AGE: 86 ADM/REG DATE : 03/31/17 MR#: [id number] REPORT SERV DATE: 04/02/17 DICTATED BY: JAVIER CAMPO DATE: 04/02/17 REPORT STATUS : Draft TRANSCRIBED BY: MODL DATE: 04/02/17 ADMISSION DATE: 03/31/2017 DISCHARGE DATE: 04/02/2017 DISCHARGE DIAGNOSES: 1. Paroxysmal atrial fibrillation, now in normal sinus rhythm. Recommended Coumadin by Dr. Buckley of the [facility]. 2. End-stage renal disease on Wednesday, Wednesday, Wednesday dialysis at [facility] unit. 3. Diet-controlled diabetes mellitus. 4. Hypertension, now controlled, off her metoprolol and methyldopa. 5. Sore throat with pharyngitis with leukocytosis, now resolved with negative blood cultures, negative strep screen, and negative flu screen; better with Levaquin. 6. Elderly at 86 years old. 7. Muscle aches and pains, now resolved. CONSULTS: Dr. Nolasco of the [facility]. PROCEDURES: Echocardiogram was performed. Her echocardiogram revealed an ejection fraction of 55% with no wall motion abnormalities and moderate pulmonary hypertension per the report. HISTORY AND PHYSICAL UPON ADMISSION: Please see the dictated history and physical by Dr. Tutu Barron. HOSPITAL COURSE: The patient was admitted to the hospital with paroxysmal atrial fibrillation with low blood pressure. Blood pressure medicines were held. She was seen by Cardiology in consultation, and she spontaneously converted to normal sinus rhythm. Cardiology discussed risks and benefits of Coumadin with her and recommended her to take anticoagulation with Coumadin. Followup has been arranged by Dr. Nolasco with his group. The patient was having problems with pharyngitis and sore throat with leukocytosis with a white count of 17,000. Blood cultures were obtained, and they are negative. Strep screen for her sore throat was negative. Flu screen was negative. She was treated with Levaquin and felt better. She was dialyzed on Wednesday without any difficulty, and her muscle pains and aches have resolved, seemed that her symptoms were related to her atrial fibrillation with rapid ventricular response, and she is now in normal sinus rhythm. The patient is able to eat and able to ambulate and is requesting discharge and certainly seems stable for discharge. CONDITION ON DISCHARGE: Stable. DISCHARGE MEDICATIONS: Will be aspirin 81 mg a day, Atorvastatin 40 mg at bedtime, Colace 100 mg twice a day, gabapentin 100 mg twice a day, Levaquin 500 mg after dialysis on Wednesday and Wednesday for two more doses, Megace 400 mg a day, B complex with multivitamin 1 a day, MiraLAX 1 packet a day, Renvela 800 mg 2 tablets with meals, Coumadin 1 mg 2 tablets each day, nitroglycerin patch 0.4 mg an hour that she takes off at bedtime. FOLLOWUP: She is to follow up with Dr. Nolasco at the [facility] as Discharge Summary [address] [place]. [address] NAME: KUSHAL RIVER : 28 STATUS : ADM IN [facility]#: [id number] AGE: 86 ADM/REG DATE : 03/31/17 MR#: [id number] REPORT SERV DATE: 04/02/17 DICTATED BY: JAVIER CAMPO DATE: 04/02/17 REPORT STATUS : Draft TRANSCRIBED BY: FILI DATE: 04/02/17 instructed. She is to follow up with [facility] for dialysis on Wednesday, Wednesday, Wednesday as scheduled. I have spoken with the dialysis unit about her new diagnosis, and they will be happy to monitor her INR. All questions were answered for the patient. She is stable at this time for discharge. All questions were answered for her. I spoke to her nurse practitioner at her [facility] unit. /FILI Javier Campo M.D. / [id number] CC: Leigha Mendiola
--- NOTE | ~2017-03-31 | HP ---
History And Physical [place] [id number] [facility] [place]. [address] NAME: KUSHAL RIVER : 29 STATUS : ADM IN [facility]#: [id number] AGE: 86 ADM/REG DATE : 03/31/17 MR#: [id number] REPORT SERV DATE: 04/01/17 DICTATED BY: TUTU CORONEL DATE: 03/31/17 REPORT STATUS : Draft TRANSCRIBED BY: FILI DATE: 03/31/17 DATE OF ADMISSION: 03/31/2017 CHIEF COMPLAINT: Atrial fibrillation. HISTORY OF PRESENT ILLNESS: Ms. River is an 86-year-old female who has a past medical history of end-stage renal disease, on hemodialysis Wednesday, Wednesday, Wednesday at [facility] under the care Dr. Nilo Grewal, she dialysis via left AV fistula, she dialyzed today. She said she was feeling well prior to hemodialysis, and then after hemodialysis, she felt generally weak. Described having pain all over her body, felt mildly nauseous without any vomiting. EMS was called, and I found that she was tachycardic with an irregular heart rhythm with a rate of 140. She was given 800 mL of IV fluids in transport, was found to still have an elevated heart rate and she is being admitted for evaluation of rate control of her atrial fibrillation. REVIEW OF SYSTEMS: Complete review of systems, She describes a pain all over in her body. 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 She has a history of a colostomy and has some leakage at her ostomy site and has been working with the nurses to try a new wax ring to contain the leakage. She reports nausea, but no vomiting. She denies any chest pain. She denies any shortness of breath, and the rest of her 12-point review of systems is negative. PAST MEDICAL HISTORY: She has end-stage renal disease as noted; diverticulitis, status post partial colectomy with ostomy; diabetes mellitus type 2; history of atrial fibrillation in the past, treated with diltiazem drip and beta blockade, coronary atherosclerotic disease, deemed inoperable by Cardiothoracic Surgery with total occlusion of her right coronary artery. PAST SURGICAL HISTORY: She has had a hysterectomy in the past, left AV fistula creation, partial colectomy with ostomy formation. SOCIAL HISTORY: No alcohol, tobacco, or drugs. 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 FAMILY HISTORY: Her family history shows some hypertension in the family and some kidney disease, but no coronary atherosclerosis disease. ALLERGIES: SHE HAS AN ALLERGY TO PENICILLIN, BUT DOES NOT RECALL THE REACTION. HOME MEDICATION: Her home medications I filled out. See the medicine reconciliation list, and I am going to hold her nitroglycerin patch, her metoprolol, and her methyldopa secondary to hypertension. PHYSICAL EXAMINATION: GENERAL: This is a thin black female, lying quietly in the emergency room, very pleasant and very cooperative. VITAL SIGNS: Her blood pressure was 113/55, her heart rate varies between 110 and 140 with History And Physical [address] [address] NAME: KUHSAL RIVER : 29 STATUS : ADM IN [facility]#: [id number] AGE: 86 ADM/REG DATE : 03/31/17 MR#: [id number] REPORT SERV DATE: 04/01/17 DICTATED BY: TUTU CORONEL DATE: 03/31/17 REPORT STATUS : Draft TRANSCRIBED BY: FILI DATE: 03/31/17 atrial fibrillation on the monitor. She is saturating 99% on room air. HEENT: She is thin, some loss of hair, otherwise normocephalic and atraumatic. Her pupils are equally round and reactive. Her sclerae are clear. Extraocular muscles are clear. Her nares are patent with no drainage. Oropharynx is clear. NECK: Supple. There is no palpable cervical lymphadenopathy. There are no carotid bruits. LUNGS: Clear. CARDIOVASCULAR: Irregular rate and rhythm with 2/6 systolic sound that radiates to her left axilla which may be her AV fistula. Her AV fistula has an audible bruit and palpable thrill. ABDOMEN: Soft. Positive bowel sounds. There is an ostomy bag in the left lower quadrant. The abdomen is nontender. EXTREMITIES: Joints have full range of motion. There is no edema. Her extremities are warm. Her pulses are 2+ and symmetric and there are no audible bruits. SKIN: No worrisome lesions. PSYCHIATRIC: Has appropriate affect, and she is very energetic for an 86-year-old female. LABORATORY STUDY: Show sodium of 143, potassium of 3.8, chloride of 107, bicarbonate of 24, BUN of 34, creatinine of 5.84. Troponin of 0.11. Magnesium of 2.3. Hematocrit of 38%. EKG done, shows some mild changes with ventricular hypertrophy, atrial fibrillation with a narrow complex at a rate of 142. ASSESSMENT AND PLAN: 1. Atrial fibrillation, the patient currently has mild hypertension, is probably not a good candidate for beta blockade or diltiazem drip at this moment. The ER doctor has gone ahead and started intravenous digoxin, and we can continue this for rate control. I would consult the Cardiology. The patient may need conversion over to amiodarone. Given the patient's age and her fall risk, anticoagulation may be risk for hemorrhage and with her end-stage renal disease her risk of embolic issues would be less. Therefore, I will hold off on full anticoagulation and just use DVT prophylaxis at the moment, unless recommended otherwise by Cardiology. 2. For end-stage renal disease, she dialyzes Wednesday, Wednesday, Wednesday. Plan on next dialysis treatment on Wednesday. 3. For diabetes. We are going to check Accu-Cheks and then use the sliding scale insulin therapy if needed. 4. For her secondary hyperparathyroidism, we are going to continue her sevelamer therapy. 5. For hyperlipidemia, we are going to continue her cholesterol medications. JACLYN/FILI Tutu Coronel MD / [id number] History And Physical [address] [address] NAME: KUSHAL RIVER : 29 STATUS : ADM IN PAT#: [id number] AGE: 86 ADM/REG DATE : 03/31/17 MR#: [id number] REPORT SERV DATE: 04/01/17 DICTATED BY: TUTU CORONEL DATE: 03/31/17 REPORT STATUS : Draft TRANSCRIBED BY: FILI DATE: 03/31/17 CC: Leigha Mendiola MD
--- NOTE | ~2017-03-31 | CN ---
Consultation Report [facility] [address] [place]. [address] NAME: KUSHAL RIVER : 28 STATUS : ADM IN [facility]#: [id number] AGE: 86 ADM/REG DATE : 03/31/17 MR#: [id number] REPORT SERV DATE: 04/01/17 DICTATED BY: ROSANA GEE DATE: 04/01/17 REPORT STATUS : Draft TRANSCRIBED BY: MODL DATE: 04/01/17 CARDIOLOGY CONSULTATION DATE OF CONSULTATION: 04/01/2017 REASON FOR CONSULTATION: Atrial fibrillation with rapid ventricular response. HISTORY OF PRESENT ILLNESS: Ms. River is a pleasant 86-year-old woman, with history of end stage renal disease, on Wednesday, Wednesday, and Wednesday hemodialysis. She underwent hemodialysis yesterday and went home. After getting off the bus, she felt that she had body aches all over. She presented back to the [facility] Emergency Room. She was found to be in atrial fibrillation with rapid ventricular response. She had some signs of volume depletion and was administer some fluids. She was in atrial fibrillation for a while longer, but then this terminated spontaneously. The patient has no previous history of atrial fibrillation nor any other cardiac history. She does have history of hypertension. History of end-stage renal disease, on hemodialysis. HOME MEDICATIONS: Aspirin, methyldopa, metoprolol 50 mg p.o. b.i.d., nitroglycerin, Sevelamer 800 mg with meals. FAMILY HISTORY: Noncontributory. Negative for premature coronary disease. SOCIAL HISTORY: Negative for tobacco or alcohol. REVIEW OF SYSTEMS: As noted above. All other systems reviewed and negative. PHYSICAL EXAMINATION: VITAL SIGNS: This morning, her blood pressure is 116/58, her pulse is 80 in sinus rhythm, respirations 16, 95% O2 saturation. GENERAL: Well developed, well nourished. HEENT: No icterus. Good dentition. NECK: Supple. No masses or thyromegaly LUNGS: Breathing comfortably. No rales or wheezes. COR: Normal S1, S2. No S3 or S4. No murmurs, clicks, rubs. No JVD ABD: Soft, nondistended, nontender, no hepatosplenomegaly. EXT: No clubbing, cyanosis or edema. Peripheral pulses 2+/=bilaterally. SKIN: Warm and dry. No visible lesions. : Chest wall without deformity, no obvious clavicular fractures. NEURO/PSYCH: Oriented X3. No anxiety or depression. DIAGNOSTIC DATA: EKG last evening demonstrated atrial fibrillation with rapid ventricular response, heart rate of 142 beats per minute, possible LVH by voltage and a leftward axis. Consultation Report [place] [id number] [place]. [address] NAME: KUSHAL RIVER : 28 STATUS : ADM IN PAT#: [id number] AGE: 86 ADM/REG DATE : 03/31/17 MR#: [id number] REPORT SERV DATE: 04/01/17 DICTATED BY: ROSANA GEE DATE: 04/01/17 REPORT STATUS : Draft TRANSCRIBED BY: FILI DATE: 04/01/17 No evidence for ischemia or infarction. LABORATORY DATA: On admission, white count was 17.5, hematocrit of 36, platelet count of 158. Electrolytes show sodium 143, potassium 3.8. Her creatinine is 5.84. Troponin 0.11. INR was 1.2. IMPRESSION: The patient with new onset atrial fibrillation. This terminated spontaneously. She had symptoms of whole body aches during the event, which resolved when the arrhythmia terminated, and also possibly with some volume resuscitation. No previous history of atrial fibrillation, but she does have a CHADS-VASc score of 3, and I would recommend anticoagulation at least at this point in time. The patient would seem to be a reasonable candidate for anticoagulation, she is very active and has good mobility. She denies any falls. She does not appear to be at high bleeding risk other than her advanced age and some borderline frailty. I have discussed this with her, she would agree. Because of her renal insufficiency and hemodialysis, Coumadin may be her best option. I have taken the liberty to start Jantoven 2.5 mg on an evening basis and arrange for a followup PT/INR at the [facility] at the [facility] in one week. I have also asked that she follow up with me in the office in two to three weeks, appointment has been arranged. Finally, I have recommended that she undergo an echocardiogram today to check cardiac structure and function. In terms of her troponin elevation, I believe this would be consistent with end-stage renal disease and her symptoms of whole body aches not consistent with unstable angina symptoms. Also, the symptoms have resolved with some mild fluid resuscitation and the termination of the arrhythmia. I do not recommend further stress testing at this point in time. She will continue on her home medications that include beta suzi in the form of metoprolol. CYRUS/FILI Rosana Gee M.D. / [id number] CC: Leigha Mendiola FRANCES
[~2017-03-31 20:23] MED LIST: ALD250 PO; COREG3 PO; MIRALAX POWDER1 PKT PO; NEUR100 PO; NIFEDIAC CC60 MG PO; RENAL SFTGLS1 MG PO; RENVELA800 MG PO; T PO
[2017-03-31 21:53] LABS: BASOPHILS 0.2 %; BASOPHILS ABSOLUTE 0.03 10/3/uL (0.0-0.16); EOSINOPHILS 0.4 %; EOSINOPHILS ABSOLUTE 0.07 10/3/uL (0.0-0.53); IMMATURE GRANULOCYTES 0.3 %; IMMATURE GRANULOCYTES ABSOLUTE 0.06 10/3/uL (0.0-0.11); LYMPHOCYTES 6.1 %; LYMPHOCYTES ABSOLUTE 1.07 10/3/uL (0.67-4.30); MEAN CORPUS HGB CONC 32.6 g/dL (32.0-36.0); MEAN CORPUSCULAR HEMOGLOB 32.1 pg (26.0-34.0); MEAN PLATELET VOLUME 9.2 fL (9.2-13.0); MONOCYTES 5.9 %; MONOCYTES ABSOLUTE 1.04 10/3/uL (0.21-1.20); NEUTROPHILS 87.1 %; NEUTROPHILS ABSOLUTE 15.22 10/3/uL (2.02-8.40); PLATELET COUNT 158 10/3/uL (150-400); RBC DISTRIBUTION WIDTH 16.1 % (12.0-16.0)
[2017-03-31 21:54] LABS: HEMATOCRIT 35.6 % (36.0-48.0); HEMOGLOBIN 11.6 g/dL (12.0-16.0); MANUAL DIFF NO %; MEAN CORPUSCULAR VOLUME 98.6 fL (80-100); RED CELL COUNT 3.61 10/6/uL (4.0-5.6); WHITE BLOOD CELLS 17.5 10/3/uL (4.5-10.5)
[2017-03-31 22:02] LABS: INTERNATIONAL NORMAL RATI 1.2 UNITS (-); PARTIAL THROMBO TIME 25.8 SEC (22.5-37.2); PROTIME (NOT ORD) 14.8 SEC (12.0-14.5)
[2017-03-31 22:07] LABS: CALCIUM, SERUM 8.7 MG/DL (8.5-10.4); CHLORIDE, SERUM 107 MMOL/L (96-112); CO2 (CARBON DIOXIDE) 24 MMOL/L (24-34); SODIUM, SERUM 143 MMOL/L (135-148)
[2017-03-31 22:11] LABS: BUN (BLOOD UREA NITROGEN) 34 MG/DL (6-23); CHEST PAIN PROFILE TAT 0 Hrs 23 Mins; CREATININE 5.84 MG/DL (0.55-1.02); GFR AFRICAN AMERICAN 7 ML/MIN (>=60); GFR NON AFRICAN AMERICAN 6 ML/MIN (>=60); GLUCOSE, SERUM 119 MG/DL (60-99); POTASSIUM, SERUM 3.8 MMOL/L (3.5-5.3); TROPONIN I 0.11 NG/ML (<0.05)
[2017-03-31] MEDS ORDERED: LIPITOR40 PO (22:54)
[2017-03-31] MEDS ORDERED: HALF81 PO (22:54)
[2017-03-31] MEDS ORDERED: LOP50 PO (22:55)
[2017-03-31] MEDS ORDERED: DSS PO (22:56)
[2017-03-31] MEDS ORDERED: NITROII20C TOP (22:56)
[2017-03-31] MEDS ORDERED: MEGACEUDL PO (22:57)
[2017-04-01 09:17] LABS: INTERNATIONAL NORMAL RATI 1.2 UNITS (-); PROTIME (NOT ORD) 14.7 SEC (12.0-14.5)
[2017-04-01 13:09] LABS: BASOPHILS 0.2 %; BASOPHILS ABSOLUTE 0.02 10/3/uL (0.0-0.16); EOSINOPHILS 1.5 %; EOSINOPHILS ABSOLUTE 0.13 10/3/uL (0.0-0.53); HEMATOCRIT 36.7 % (36.0-48.0); HEMOGLOBIN 11.9 g/dL (12.0-16.0); IMMATURE GRANULOCYTES 0.2 %; IMMATURE GRANULOCYTES ABSOLUTE 0.02 10/3/uL (0.0-0.11); LYMPHOCYTES 17.9 %; LYMPHOCYTES ABSOLUTE 1.54 10/3/uL (0.67-4.30); MANUAL DIFF NO %; MEAN CORPUS HGB CONC 32.4 g/dL (32.0-36.0); MEAN CORPUSCULAR HEMOGLOB 31.9 pg (26.0-34.0); MEAN CORPUSCULAR VOLUME 98.4 fL (80-100); MEAN PLATELET VOLUME 9.2 fL (9.2-13.0); MONOCYTES 8.1 %; NEUTROPHILS 72.1 %; PLATELET COUNT 151 10/3/uL (150-400); RBC DISTRIBUTION WIDTH 16.4 % (12.0-16.0); RED CELL COUNT 3.73 10/6/uL (4.0-5.6); WHITE BLOOD CELLS 8.6 10/3/uL (4.5-10.5)
[2017-04-01 13:33] LABS: ULTRASENSITIVE TSH 1.74 MCIU/ML (0.358-3.740)
[2017-04-01 17:07] LABS: INFLUENZA A SCREEN NEGATIVE (NEGATIVE); INFLUENZA B SCREEN NEGATIVE (NEGATIVE)
[2017-04-02 06:32] LABS: INTERNATIONAL NORMAL RATI 1.2 UNITS (-); PROTIME (NOT ORD) 14.9 SEC (12.0-14.5)
[2017-04-02 13:35] LABS: BASOPHILS 0.3 %; BASOPHILS ABSOLUTE 0.02 10/3/uL (0.0-0.16); EOSINOPHILS 2.4 %; EOSINOPHILS ABSOLUTE 0.19 10/3/uL (0.0-0.53); HEMATOCRIT 36.5 % (36.0-48.0); HEMOGLOBIN 11.7 g/dL (12.0-16.0); IMMATURE GRANULOCYTES 0.3 %; IMMATURE GRANULOCYTES ABSOLUTE 0.02 10/3/uL (0.0-0.11); LYMPHOCYTES ABSOLUTE 1.65 10/3/uL (0.67-4.30); MEAN CORPUS HGB CONC 32.1 g/dL (32.0-36.0); MEAN CORPUSCULAR HEMOGLOB 31.4 pg (26.0-34.0); MEAN CORPUSCULAR VOLUME 97.9 fL (80-100); MEAN PLATELET VOLUME 9.6 fL (9.2-13.0); MONOCYTES 9.3 %; MONOCYTES ABSOLUTE 0.73 10/3/uL (0.21-1.20); NEUTROPHILS 66.7 %; NEUTROPHILS ABSOLUTE 5.23 10/3/uL (2.02-8.40); PLATELET COUNT 162 10/3/uL (150-400); RED CELL COUNT 3.73 10/6/uL (4.0-5.6); WHITE BLOOD CELLS 7.8 10/3/uL (4.5-10.5)
[2017-04-02 13:38] LABS: MANUAL DIFF NO %
[2017-04-02 13:45] LABS: CALCIUM, SERUM 9.1 MG/DL (8.5-10.4); CHLORIDE, SERUM 101 MMOL/L (96-112); CO2 (CARBON DIOXIDE) 24 MMOL/L (24-34); PHOSPHORUS, SERUM 5.1 MG/DL (2.5-4.5)
[2017-04-02 13:46] LABS: ALBUMIN 2.9 G/DL (3.5-5.0); BUN (BLOOD UREA NITROGEN) 67 MG/DL (6-23); CREATININE 9.48 MG/DL (0.55-1.02); GFR AFRICAN AMERICAN 4 ML/MIN (>=60); GFR NON AFRICAN AMERICAN 3 ML/MIN (>=60); GLUCOSE, SERUM 76 MG/DL (60-99); POTASSIUM, SERUM 5.4 MMOL/L (3.5-5.3); SODIUM, SERUM 135 MMOL/L (135-148)
[2017-04-02] MEDS ORDERED: LEVAQUIN5T PO (18:23)
[2017-04-02] MEDS ORDERED: JANTOVEN2.5 MG PO (18:38)
== END 2017-04-02 22:19 | disposition home or self-care (01) | DRG 308 ==
LOC: ER 20:23 → 6NO 23:04
PROVIDERS: Emergency Medicine; Internal Medicine Cardiovascular Disease; Internal Medicine Nephrology
PROC: 5A1D60Z (ICD-10-PCS; principal; 2017-03-31)
DX: I48.0 Paroxysmal atrial fibrillation (principal); N18.6 End stage renal disease; I12.0 Hypertensive chronic kidney disease with stage 5 chronic kidney disease or end stage renal disease; E11.22 Type 2 diabetes mellitus with diabetic chronic kidney disease; J02.9 Acute pharyngitis, unspecified; Z90.49 Acquired absence of other specified parts of digestive tract; Z93.3 Colostomy status; I25.10 Atherosclerotic heart disease of native coronary artery without angina pectoris; Z88.0 Allergy status to penicillin; Z90.710 Acquired absence of both cervix and uterus
CPT/HCPCS: 71010; 80048; 80069; 82550; 82962; 83735; 84443; 84484; 85025; 85610; 85730; 87040; 87070; 87804; 87880; 93005; 93306; 96374; 96375; 99285; A9270-GY; C9113; G0257; J1160; J2405